=== PATIENT | male | born 1940 | race Caucasian/White ===

== ENCOUNTER 2017-01-21 12:34 | Emergency (ER) | payer MEDICARE, OTHER ==
[2017-01-21 12:43] VITALS: BP 165/98
--- NOTE | 2017-01-21 13:04 | ERNOTE ---
Upper Extremity HPI - Narrative Date of Service: 01/21/17 - General Extremities Pain Location: wrist: right Time Seen by Provider: 01/21/17 12:46 Source: patient Exam Limitations: no limitations - Immun/Allergies/Home Medications Immunizations: IMMUNIZATION HX Immunizations Up to Date Yes History of Influenza Vaccine No Hx Pneumococcal Vaccination No Allergies/Adverse Reactions: Allergies Allergy/AdvReac Type Severity Reaction Status Date / Time No Known Allergies Allergy Unverified 01/21/17 12:43 Home Medications: HOME MEDICATIONS Aspirin [Aspirin Chewable] 81 mg PO DAILY 01/21/17 [Last Taken Unknown] Atorvastatin Calcium [Lipitor] 80 mg PO DAILY 01/21/17 [Last Taken Unknown] HYDROcodone/ACETAMINOPHEN [Hydrocodon-Acetaminophen 5-325] 1 each PO TID PRN # 20 tablet 01/21/17 [Last Taken Unknown] Isosorbide Mononitrate [Imdur] 60 mg PO DAILY 01/21/17 [Last Taken Unknown] Losartan Potassium [Cozaar] 100 mg PO DAILY 01/21/17 [Last Taken Unknown] Metoprolol Succinate [Toprol Xl] 25 mg PO DAILY 01/21/17 [Last Taken Unknown] Tamsulosin HCl [Flomax] 0.4 mg PO DAILY 01/21/17 [Last Taken Unknown] - History of Present Illness Narrative: 76-year-old male presents to the emergency room after he fell. Patient states he was at [employer] dusting off the stretcher when he stepped back and fell bracing himself with his right arm. Patient has pain with rotation to the right wrist. Date (Duration): 01/21/17 Occurred: just prior to arrival Location of Incident: other - [facility] Method of Injury: Reports: direct blow Reason for Fall: Reports: lost balance Loss of Consciousness: Reports: no loss of consciousness Modifying Factors - (Improves): Reports: rest Modifying Factors - (Worsens): Reports: movement Associated Symptoms: Reports: loss of power (rt arm). Denies: tingling, weakness, numbness distally, loss of feeling Other Injuries: Reports: none Review of Systems - Review of Systems Constitutional: Present: no symptoms reported EYE: Present: no symptoms reported ENT: Present: no symptoms reported Respiratory: Present: no symptoms reported Cardiology: Present: no symptoms reported Gastrointestinal/Abdominal: Present: no symptoms reported Genitourinary: Present: no symptoms reported Musculoskeletal: Present: See HPI, joint pain, joint swelling Skin: Present: no symptoms reported Neurological: Present: no symptoms reported Endocrine: Present: no symptoms reported Hematologic/Lymphatic: Present: no symptoms reported Psych: Present: no symptoms reported All Other Systems: All systems neg except as marked - Patient's Past Medical History Patient History - Cardiac/Respiratory: Hypertension, Hyperlipidemia, Myocardial Infarction, Other - 2003 Patient History - Cancer: No Hx of Cancer Patient History - Surgical Procedures: Coronary Bypass Surgery, Cardiac stent Patient History - Other: None - Social History Living Situations: home Psych History: No pertinent hx - Immunizations Immunizations Up to Date: Yes Hx Pneumococcal Vaccination: No History of Influenza Vaccine: No Physical Exam - Physical Exam Narrative: Pain with external rotation to rest. Some swelling to the wrist observed. 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 No numbness tingling or decreased sensation. Capillary refills brisk bilaterally General Appearance: Present: wd/wn, alert, no apparent distress Head Exam: Present: normal inspection, no evidence of injury Eye Exam: Normal inspection: bilateral, PERRL: bilateral Ears, Nose, Throat: Present: normal ENT inspection, normal pharynx Neck: Present: normal inspection, nontender Respiratory: Present: no respiratory distress, normal breath sounds, no accessory muscle use, chest nontender, lungs clear. Absent: chest tenderness, respiratory distress, decreased breath sounds Cardiovascular/Chest: Present: regular rate, rhythm, no murmur, normal peripheral pulses - patient states his resting HR is normally 50. Peripheral Pulses: N=norm/S=strong/W=weak/B=bound/A=absent: Radial (R): Normal, Radial (L): Normal Gastrointestinal/Abdominal: Present: normal bowel sounds, nontender, nondistended, soft, no organomegaly Back Exam: Present: normal inspection, normal range of motion, no CVA tenderness , no vertebral tenderness Extremity Exam: Present: normal except -, bony tenderness - on right wrist, left wrist is WNL for patient, joint swelling Neurological Exam: Present: alert, oriented, normal mood/affect, no motor/ sensory deficits Skin Exam: Present: normal color, warm/dry Lymphatic Exam: Present: no adenopathy ED Progress - Vital Signs Vital Signs: Vital Signs 01/21/17 12:40 Temperature 36.3 C L Pulse Rate 53 L Respiratory 17 Rate Blood Pressure 165/98 O2 Sat by Pulse 96 Oximetry - X-Ray X-Ray #1 X-Ray: wrist Interpretation: Reviewed by me X-ray Comments: possible scaphoid fracture. no other findings. - Progress/Reassessment Chief Complaint: Upper Extremity Injury/Problem Progress:: Improved Plan - Plan Plan: patient placed in a thumb spika splint for possible scaphoid fracture. he will follow up with his Dr Carty in 2 weeks for a follow up x-ray. Departure Clinical Impression: Scaphoid fracture of wrist Qualifiers: Encounter type: initial encounter Scaphoid bone location: unspecified portion of scaphoid Fracture type: closed Fracture alignment: nondisplaced Laterality: right Qualified Code(s): S62.001A - Unspecified fracture of navicular [scaphoid ] bone of right wrist, initial encounter for closed fracture - Departure Disposition: Home Follow Up Needed Condition: Stable Instructions: Cast or Splint Care, [id number], Wrist Splint, [id number], Scaphoid Fracture Additional Instructions: Continue Previous home medications. Her splint at all times. Follow-up with Dr. Carty in 2 weeks. Return to emergency room if you develop any numbness or tingling decreased sensation or change in color to the right wrist or hand. He may take [id number] pain medications as needed or the prescribed medications. Do not take them together. Referrals: Osman Dallas MD [Staff Physician] - Prescriptions: HYDROcodone/ACETAMINOPHEN [Hydrocodon-Acetaminophen 5-325] 1 each PO TID PRN # 20 tablet PRN Reason: Pain
== END 2017-01-21 13:50 | disposition home or self-care (01) ==
LOC: ER 12:34
PROC: 2W3CX1Z Immobilization of Right Lower Arm using Splint (ICD-10-PCS; principal; 2017-01-21)
DX: S62.001A Unspecified fracture of navicular [scaphoid] bone of right wrist, initial encounter for closed fracture (principal); I10 Essential (primary) hypertension; E78.5 Hyperlipidemia, unspecified; I25.2 Old myocardial infarction; W01.0XXA Fall on same level from slipping, tripping and stumbling without subsequent striking against object, initial encounter; Y93.89 Activity, other specified; Y92.22 Religious institution as the place of occurrence of the external cause